=== PATIENT | female | born 1940 | race Caucasian/White ===

== ENCOUNTER 2018-04-10 10:46 | Outpatient (CLI) | payer MEDICARE, BC | END 2018-04-10 10:47 | disposition home or self-care (01) | LOC: BICMAMMO 10:46 | PROVIDERS: ATTEND Specialist | DX: Z08 Encounter for follow-up examination after completed treatment for malignant neoplasm (principal); Z85.3 Personal history of malignant neoplasm of breast; Z80.3 Family history of malignant neoplasm of breast | CPT/HCPCS: 77066; G0279 ==

== ENCOUNTER 2019-04-01 03:12 | Observation (INO) | payer MEDICARE, BC ==
[2019-04-01 04:53] LABS: Hemoglobin 13.2 g/dL (12.0-16.0); Mean Corpuscular HGB CONC 32.9 g/dL (32.0-36.0); Mean Corpuscular Hemoglobin 30.5 pg (27.0-31.0); Mean Corpuscular Volume 92.6 fL (78.0-98.0); Mean Platelet Volume 7.3 fL (7.4-10.4); Platelet Count 386 thou/uL (130-400); RBC Distribution Width 11.6 % (11.5-14.5); Red Blood Cell (RBC) Count 4.32 mill/uL (4.20-5.40); White Blood Cell (WBC) Count 13.1 thou/uL (4.8-10.8)
[2019-04-01 05:10] LABS: ALT (SGPT) 18 U/L (8-55); AST (SGOT) 19 U/L (5-34); Albumin 4.2 g/dL (3.4-4.8); Alkaline Phosphatase 142 U/L (40-110); Anion Gap 16 mmol/L (10-20); BUN (Urea Nitrogen) 31 mg/dL (9.8-20.1); Bilirubin, Total 0.4 mg/dL (0.2-1.2); Calc. Creatinine Clearance 0 mL/min (70-130); Calcium 9.8 mg/dL (7.8-10.44); Carbon Dioxide 21 mmol/L (23-31); Chloride 94 mmol/L (98-107); Estimated GFR-MDRD 26; Globulin 2.9 g/dL (2.4-3.5); Glucose 112 mg/dL (83-110); Protein, Total 7.1 g/dL (6.0-8.3); Sodium 128 mmol/L (136-145)
[2019-04-01 05:14] LABS: Potassium 2.9 mmol/L (3.5-5.1)
[2019-04-01 05:18] LABS: Band 33 % (5-11); Lymphocytes 3 % (21-51); MDiff Complete? YES; Monocytes 1 % (0-10); Neutrophil 63 % (42-75)
[2019-04-01] MEDS ORDERED: Piperacillin/Tazobactam 4.5 GM VIAL ONE (08:06)
--- NOTE | 2019-04-01 08:41 | CT ---
PRELIMINARY REPORT/[facility]/EMERGENCY AFTER HOURS PROCEDURE: PROCEDURE INFORMATION: Exam: CT Abdomen and pelvis without contrast Exam date and time: 04/01/2019 6:26 AM Clinical history: 78 years old, female; Bloating and nausea and vomiting; Patient HX: Patient present s for evaluation of nausea, patient presents for evaluation of vomiting, patient presents for evaluat ion of diarrhea TECHNIQUE: Imaging protocol: Computed tomography of the abdomen and pelvis without contrast. COMPARISON: No relevant prior studies available. FINDINGS: Lungs: Scarring left lung base. Mediastinum: Hiatal hernia. Liver: No liver masses. Gallbladder and bile ducts: Surgical changes of cholecystectomy. No ductal dilation. Pancreas: No pancreatic mass or ductal dilation. Spleen: No splenic masses. Adrenals: No adrenal nodules. Kidneys and ureters: Exophytic cyst superior pole of the right kidney. Punctate cortical versus nonob structing stone in the right kidney. No hydronephrosis. Stomach and bowel: Marked diverticulosis of the sigmoid colon with with wall thickening likely relate d to chronic diverticulitis. Mild distention of the proximal small bowel up to 3 cm and scattered are as of wall thickening. Appendix: The appendix is not visualized, however there are no inflammatory changes in the right lowe r quadrant to suspect appendicitis. Intraperitoneal space: Trace free pelvic fluid. Vasculature: Probable peripherally calcified 1.2 cm distal left renal artery aneurysm. Atherosclerosi s of the aorta without aneurysm. Lymph nodes: No lymphadenopathy. Bladder: The bladder is largely decompressed. Reproductive: Normal appearance of the uterus and adnexa. Bones/joints: Multilevel degenerative changes of the thoracolumbar spine. Mild compression fractures of the superior endplates of L1 and L5. Grade 1 anterolisthesis of L4 with respect to L5. Nonspecific subcentimeter focal sclerosis in the sacrum, likely a bone island. Soft tissues: Fat containing right inguinal hernia. Fat containing umbilical hernia. IMPRESSION: 1. Mild distention of proximal small bowel and a few bowel loops with wall thickening. Predominantly liquid filled colon. Finding most likely represents enteritis, less likely partial small bowel obstru ction without transition identified. 2. Appearance of the sigmoid colon suggest chronic diverticulitis. 3. Hiatal hernia. Thank you for allowing us to participate in the care of your patient. Dictated and Authenticated by: Pearl Ledesma MD 04/01/2019 6:51 AM Central Time ([place] & [place]) FINAL REPORT EMERGENCY AFTER HOURS ABDOMEN AND PELVIC CT SCAN WITHOUT IV CONTRAST: Date: 04/01/19 Time: 0627 hours IMPRESSION: Mild distention and dilatation of small bowel with some mild small bowel wall thickening, as well as essentially fluid-filled colon, nonspecific, possibly enteritis, less likely enterocolitis. Colonic d iverticulosis, particularly in the sigmoid colon, with some fat stranding, having more of a chronic a ppearance, although it would be difficult to totally exclude some minimal acute diverticulitis. Hiata l hernia. Fat-containing umbilical hernia. Densely calcified left renal artery aneurysm, 0.9 cm. Smal l, punctate calcific focus in the right kidney without hydronephrosis. Anterolisthesis of L4 on L5. Report in agreement with preliminary report given on-call by Le. POS: KRISTAN
[2019-04-01] MEDS ORDERED: Acetaminophen 325 MG TAB PO PRN (09:37)
[2019-04-01] MEDS ORDERED: Sodium Chloride 0.9% 1,000 ML IV SCH (09:45)
[2019-04-01 10:10] LABS: #Lymphocytes 0.4 thou/uL (1.20-3.40); #Monocytes 1.7 thou/uL (0.11-0.59); #Neutrophils 16.5 thou/uL (1.40-6.50); %Basophils 0.1 % (0.0-1.0); %Lymphocytes 1.9 % (21.0-51.0); %Monocytes 9.3 % (0.0-10.0); %Neutrophils 88.8 % (42.0-75.0); Hemoglobin 11.5 g/dL (12.0-16.0); Mean Corpuscular HGB CONC 32.8 g/dL (32.0-36.0); Mean Corpuscular Hemoglobin 29.9 pg (27.0-31.0); Mean Platelet Volume 7.2 fL (7.4-10.4); Platelet Count 333 thou/uL (130-400); RBC Distribution Width 11.6 % (11.5-14.5); Red Blood Cell (RBC) Count 3.86 mill/uL (4.20-5.40); White Blood Cell (WBC) Count 18.6 thou/uL (4.8-10.8)
[2019-04-01 10:36] LABS: Anion Gap 15 mmol/L (10-20); Carbon Dioxide 19 mmol/L (23-31); Chloride 98 mmol/L (98-107); Potassium 3.9 mmol/L (3.5-5.1); Sodium 128 mmol/L (136-145)
[2019-04-01 10:39] LABS: ALT (SGPT) 16 U/L (8-55); AST (SGOT) 20 U/L (5-34); Albumin 3.7 g/dL (3.4-4.8); Alkaline Phosphatase 99 U/L (40-110); BUN (Urea Nitrogen) 34 mg/dL (9.8-20.1); Bilirubin, Total 0.5 mg/dL (0.2-1.2); Calc. Creatinine Clearance 0 mL/min (70-130); Calcium 8.9 mg/dL (7.8-10.44); Estimated GFR-MDRD 29; Globulin 2.5 g/dL (2.4-3.5); Glucose 124 mg/dL (83-110); Protein, Total 6.2 g/dL (6.0-8.3)
[2019-04-01] MEDS ORDERED: metroNIDAZOLE 500 MG/100 ML BAG ONE (14:33)
[2019-04-01] MEDS: NS 0.9% w/ 20 MEQ KCL 1,000 ML/1,000 ML BAG IV SCH (15:55)
[2019-04-01] MEDS: metroNIDAZOLE 500 MG in Premix Bag 1 BAG IVPB SCH ×2 (16:05→21:05)
[2019-04-01 20:02] VITALS: BMI 34.0
--- NOTE | 2019-04-01 22:36 | HP ---
CHIEF COMPLAINT: Diarrhea, nausea, and vomiting. HISTORY OF PRESENT ILLNESS: The patient is a very pleasant 78-year-old female with a history of hypercholesterolemia, and anxiety, who presents to the hospital with complaints of nausea, vomiting, and diarrhea x1 day. The patient stated that last night she ate chicken fried steak from [employer]) and had a chocolate blizzard and right before she was going to bed, she felt lightheaded, felt very nauseous, started having significant amount of nausea, vomiting, followed by significant amount of diarrhea. The patient is wheelchair bound. She states she could not even keep anything down. The patient states that sometimes when she eats greasy foods, she does have these symptoms. The patient does not have a gallbladder. The patient stated that she felt so weak, so she came into the ER for further evaluation. PAST MEDICAL HISTORY: She has a past medical history of; 1. Hypercholesterolemia. 2. Hypertension. 3. Anxiety. 4. She has had a pontine stroke causing hemiplegia. PAST SURGICAL HISTORY: She has had a cholecystectomy. She has had a partial right knee repair. She has also had a right internal carotid artery endarterectomy. ALLERGIES: SHE IS ALLERGIC TO NO DRUGS. MEDICATIONS: As of the following; 1. Aspirin 325 mg one p.o. daily. 2. Wellbutrin 150 mg daily. 3. Simvastatin 40 mg at bedtime. 4. Travoprost one drop in each eye at night. 5. Verapamil 120 mg in the morning and 240 mg at night. REVIEW OF SYSTEMS: All negative except for the ones mentioned above in the HPI. SOCIAL HISTORY: She is . She does not drink. She does not smoke. No recreational drug use. She is a full code. FAMILY HISTORY: No history of heart disease or stroke. PHYSICAL EXAMINATION: VITAL SIGNS: Temperature of 98.8, pulse 86, blood pressure 122/68, 98% on room air. GENERAL: She is awake, alert, and oriented x3. Does not appear in any distress. HEENT: Normocephalic and atraumatic. No lymphadenopathy noted. Pupils are equal and reactive to light. CV: S1 and S2 present. No murmurs, rubs, or gallops. LUNGS: Clear to auscultation. No rhonchi or wheezes noted. ABDOMEN: Soft and nontender. Bowel sounds present x2. EXTREMITIES: Mild 1+ edema. Pedal pulses are present x2. NEUROLOGIC: Neurovascular sotomayor, no focal deficits noted. SKIN: No cuts, lesions, or bruises noted. LABORATORY RESULTS: As of the following. Her WBC is 13.1 with bands of 33, hemoglobin of 13.2, hematocrit of 40.1. Her platelets are 386. Chemistry; sodium of 128, potassium of 2.9, BUN of 31, creatinine of 1.87, her baseline is 0.8. Alkaline phosphatase of 142, which went down to 99. She did have a CT of abdomen and pelvis, which indicated mild distention of proximal small bowel and few bowel loops with wall thickening predominantly liquid filled: Most likely enteritis, less likely to be partial small bowel obstruction and appearance of sigmoid colon suggesting of chronic diverticulitis and hiatal hernia. ASSESSMENT AND PLAN: The patient is a very pleasant 78-year-old female, who presents to the hospital with complaints of nausea, vomiting, and diarrhea. 1. Nausea, vomiting, diarrhea, most likely secondary to gastroenteritis, not sure if this is due to her toxin versus a viral. We will start the patient on some IV hydration. I will also put on prophylactic antibiotics with Cipro and Flagyl and also put on some Florastor. We will check a stool for C diff and stool for WBCs. 2. Hypokalemia. We will replace her potassium and add some potassium in her IV. 3. Hyponatremia. We will check a serum osmolality. We will also check a TSH and a cortisol level. This could be secondary to dehydration versus syndrome of inappropriate antidiuretic hormone secretion. 4. Acute kidney injury as most likely secondary to severe nausea, vomiting, and diarrhea. Her creatinine has improved on her 2nd repeat blood work, however, I will continue the IV hydration and monitor. 5. Deep venous thrombosis prophylaxis. We will put the patient on some subcu heparin. Job ID: [id number]
[2019-04-02] MEDS: metroNIDAZOLE 500 MG in Premix Bag 1 BAG IVPB SCH (05:39)
[2019-04-02] MEDS: NS 0.9% w/ 20 MEQ KCL 1,000 ML/1,000 ML BAG IV SCH ×2 (05:40→18:31)
[2019-04-02 06:42] LABS: #Eosinphils 0.2 thou/uL (0.0-0.7); #Lymphocytes 1.2 thou/uL (1.20-3.40); #Monocytes 1.4 thou/uL (0.11-0.59); #Neutrophils 14.7 thou/uL (1.40-6.50); %Basophils 0.1 % (0.0-1.0); %Eosinophils 0.9 % (0.0-10.0); %Lymphocytes 6.9 % (21.0-51.0); %Monocytes 8.1 % (0.0-10.0); %Neutrophils 84.1 % (42.0-75.0); Hemoglobin 8.7 g/dL (12.0-16.0); Mean Corpuscular HGB CONC 33.1 g/dL (32.0-36.0); Mean Corpuscular Hemoglobin 30.8 pg (27.0-31.0); Mean Corpuscular Volume 92.8 fL (78.0-98.0); Mean Platelet Volume 7.4 fL (7.4-10.4); Platelet Count 274 thou/uL (130-400); RBC Distribution Width 11.6 % (11.5-14.5); Red Blood Cell (RBC) Count 2.82 mill/uL (4.20-5.40); White Blood Cell (WBC) Count 17.5 thou/uL (4.8-10.8)
[2019-04-02 07:03] LABS: ALT (SGPT) 13 U/L (8-55); AST (SGOT) 19 U/L (5-34); Albumin 3.2 g/dL (3.4-4.8); Alkaline Phosphatase 70 U/L (40-110); Anion Gap 11 mmol/L (10-20); BUN (Urea Nitrogen) 28 mg/dL (9.8-20.1); Bilirubin, Total 0.4 mg/dL (0.2-1.2); Calc. Creatinine Clearance 45 mL/min (70-130); Calcium 8.2 mg/dL (7.8-10.44); Carbon Dioxide 21 mmol/L (23-31); Chloride 102 mmol/L (98-107); Estimated GFR-MDRD 38; Globulin 2.1 g/dL (2.4-3.5); Glucose 84 mg/dL (83-110); Potassium 3.6 mmol/L (3.5-5.1); Protein, Total 5.3 g/dL (6.0-8.3); Sodium 130 mmol/L (136-145)
[2019-04-02] MEDS: Saccharomyces boulardii 250 MG CAP PO SCH (08:28)
[2019-04-02] MEDS: Enoxaparin Sodium 40 MG/0.4 ML SYRINGE SC SCH (08:29)
[2019-04-02] MEDS ORDERED: FLU VACC TS2019-20(65YR UP)/PF 180 MCG/0.5 ML SYRINGE IM ONE (09:00)
[2019-04-02] MEDS: Famotidine 20 MG TAB PO SCH ×2 (10:36→20:23)
[2019-04-02] MEDS: Vancomycin HCl 25 MG/ML Oral PO SCH ×3 (10:49→20:23)
[2019-04-02] MEDS ORDERED: Atorvastatin Calcium 20 MG TAB PO SCH (21:00)
[2019-04-02] MEDS ORDERED: Latanoprost 0.005% Ophth Soln 2.5 ml Bottle EA EYE SCH (21:00)
[2019-04-03] MEDS: Vancomycin HCl 25 MG/ML Oral PO SCH ×3 (02:34→15:11)
--- NOTE | 2019-04-03 07:32 | PDOC.HOSPP ---
- Subjective Encounter Date: 04/02/19 Encounter Time: 10:30 Subjective: pt up in bed feels well. - Objective Vital Signs & Weight: Vital Signs (12 hours) Temp Pulse Resp BP BP Pulse Ox 04/03/19 06:02 168/80 H 04/03/19 04:00 97.9 F 71 20 197/93 H 95 04/02/19 23:41 98.0 F 89 20 158/66 H 96 04/02/19 19:47 98.1 F 87 20 184/91 H 97 Weight Weight 180 lb I&O: 04/02/19 04/03/19 04/04/19 06:59 06:59 06:59 Intake Total 3100 600 Output Total 300 Balance 2800 600 Result Diagrams: 04/02/19 06:05 04/02/19 06:05 Hospitalist ROS - Review of Systems Respiratory: denies: cough, dry, shortness of breath, hemoptysis, SOB with excertion, pleuritic pain, sputum, wheezing, other Cardiovascular: denies: chest pain, palpitations, orthopnea, paroxysmal noc. dyspnea, edema, light headedness, other Gastrointestinal: denies: nausea, vomiting, abdominal pain, diarrhea, constipation, melena, hematochezia, other - Medication Medications: Active Medications Generic Name Dose Route Start Last Admin Trade Name Damian PRN Reason Stop Dose Admin Atorvastatin Calcium 20 mg 04/02/19 21:00 04/02/19 20:23 Lipitor PO 20 mg HS JACKSON Administration Enoxaparin Sodium 40 mg 04/02/19 09:00 04/02/19 08:29 Lovenox SC 40 mg 0900 JACKSON Administration Latanoprost 1 drop 04/02/19 21:00 04/02/19 20:23 Xalatan 0.005% Ophth Soln EA EYE 1 drop HS JACKSON Administration Saccharomyces Boulardii 250 mg 04/02/19 09:00 04/02/19 08:28 Florastor PO 250 mg DAILY JACKSON Administration Vancomycin HCl 125 mg 04/02/19 09:00 04/03/19 02:34 First Vancomycin PO 125 mg Q6H JACKSON Administration Verapamil HCl 240 mg 04/02/19 21:00 04/02/19 20:23 Calan Sr PO 240 mg HS JACKSON Administration - Exam Neck: negative: supple, symmetric, no JVD, no thyromegaly, no lymphadenopathy, no carotid bruit, JVD Heart: negative: RRR, no murmur, no gallops, no rubs, normal peripheral pulses, irregular, diminshed peripheral pulses, murmur present, II/IV, III/IV Respiratory: wheezes Hosp A/P (1) C. difficile diarrhea Code(s): A04.72 - ENTEROCOLITIS D/T CLOSTRIDIUM DIFFICILE, NOT SPCF RECUR Status: Acute (2) Morbid obesity Code(s): E66.01 - MORBID (SEVERE) OBESITY DUE TO EXCESS CALORIES Status: Acute (3) [place] (acute kidney injury) Code(s): N17.9 - ACUTE KIDNEY FAILURE, UNSPECIFIED Status: Acute (4) Leukocytosis Code(s): D72.829 - ELEVATED WHITE BLOOD CELL COUNT, UNSPECIFIED Status: Acute (5) Anemia Code(s): D64.9 - ANEMIA, UNSPECIFIED Status: Acute - Plan will start pt on vanco and stop abx. will check hh in am discontinue iv fluids and give a neb tx. she has some mild wheezing.
[2019-04-03 07:59] VITALS: BP 175/77; TEMP 97.7
[2019-04-03] MEDS: Saccharomyces boulardii 250 MG CAP PO SCH (08:18)
[2019-04-03] MEDS: Enoxaparin Sodium 40 MG/0.4 ML SYRINGE SC SCH (08:19)
[2019-04-03 08:24] LABS: #Basophils 0.1 thou/uL (0.0-0.2); #Eosinphils 0.5 thou/uL (0.0-0.7); #Lymphocytes 1.3 thou/uL (1.20-3.40); #Monocytes 1.1 thou/uL (0.11-0.59); #Neutrophils 9.2 thou/uL (1.40-6.50); %Basophils 0.4 % (0.0-1.0); %Lymphocytes 10.7 % (21.0-51.0); Hemoglobin 9.9 g/dL (12.0-16.0); Mean Corpuscular HGB CONC 32.3 g/dL (32.0-36.0); Mean Corpuscular Hemoglobin 29.4 pg (27.0-31.0); Mean Corpuscular Volume 91.3 fL (78.0-98.0); Mean Platelet Volume 7.5 fL (7.4-10.4); Platelet Count 301 thou/uL (130-400); RBC Distribution Width 11.6 % (11.5-14.5); Red Blood Cell (RBC) Count 3.36 mill/uL (4.20-5.40); White Blood Cell (WBC) Count 12.1 thou/uL (4.8-10.8)
[2019-04-03 08:48] LABS: Anion Gap 13 mmol/L (10-20); BUN (Urea Nitrogen) 12 mg/dL (9.8-20.1); Calc. Creatinine Clearance 64 mL/min (70-130); Calcium 9.2 mg/dL (7.8-10.44); Carbon Dioxide 23 mmol/L (23-31); Chloride 104 mmol/L (98-107); Estimated GFR-MDRD 58; Glucose 86 mg/dL (83-110); Potassium 3.7 mmol/L (3.5-5.1); Sodium 136 mmol/L (136-145)
[2019-04-03] MEDS ORDERED: Aspirin 325 MG TAB PO SCH ×2 (09:00)
[2019-04-03] MEDS ORDERED: Anastrozole 1 MG TAB PO SCH (09:00)
[2019-04-03] MEDS ORDERED: Famotidine 20 MG TAB PO SCH (21:00)
--- NOTE | 2019-04-03 23:19 | DIS ---
DATE OF ADMISSION: 04/01/2019 DATE OF DISCHARGE: 04/03/2019 DISCHARGE DIAGNOSES: 1. Clostridium difficile. 2. Diarrhea. 3. Hypertension. HOSPITAL COURSE: The patient is a 78-year-old female who came to the hospital with no abdominal pain, but just diarrhea. She did undergo stool studies, the patient's C diff was positive and also toxin was positive. The patient was put on oral vancomycin, she tolerated it well. Her diarrhea has improved. Her leukocytosis has improved. The patient has been tolerating her diet and she wants to go home. The patient will follow up with her primary care. MEDICATIONS: She is going to be on: 1. Pepcid 20 mg b.i.d. 2. Her Protonix has been discontinued. 3. Vancomycin oral 250 mg q.i.d. 4. Simvastatin 40 mg daily. 5. Aspirin 81 mg daily. 6. Anastrozole one p.o. daily. 7. Verapamil 240 mg p.o. b.i.d. PHYSICAL EXAMINATION: VITAL SIGNS: Temperature 97.7, pulse 74, respirations 18, 98% on room air, blood pressure 160/80. GENERAL: She is awake, alert, and oriented x3. Does not appear in any distress. CV: S1 and S2 present. No murmurs, rubs, gallops. ABDOMEN: Soft and nontender. Bowel sounds present x2. Job ID: [id number]
== END 2019-04-03 18:14 | disposition home or self-care (01) ==
LOC: ERS 03:12 → ERHOLD 06:15 → T4-A 17:50
PROVIDERS: ADMIT Internal Medicine; ATTEND Internal Medicine
DX: A04.72 Enterocolitis due to Clostridium difficile, not specified as recurrent (principal); K44.9 Diaphragmatic hernia without obstruction or gangrene; I10 Essential (primary) hypertension; N17.9 Acute kidney failure, unspecified; D72.829 Elevated white blood cell count, unspecified; E87.6 Hypokalemia; E87.1 Hypo-osmolality and hyponatremia; E66.01 Morbid (severe) obesity due to excess calories; D64.9 Anemia, unspecified; E78.00 Pure hypercholesterolemia, unspecified; F41.9 Anxiety disorder, unspecified; I63.89 Other cerebral infarction; G81.90 Hemiplegia, unspecified affecting unspecified side; Z68.34 Body mass index [BMI] 34.0-34.9, adult; Z79.82 Long term (current) use of aspirin; Z79.899 Other long term (current) drug therapy; Z91.048 Other nonmedicinal substance allergy status
CPT/HCPCS: 74176; 80048; 80053 ×3; 83630; 83735; 83930; 83935; 84300; 85025 ×4; 87324; 87449; 87493; 90662; 94640; 96360; 96361; 96365; 96366; 96367 ×2; 96372 ×2; 99285; G0008; G0378 ×4; 36415; 51798; 90471; J0744; J1650; J2543; J3480; J7620

== ENCOUNTER 2019-04-14 13:55 | Outpatient (CLI) | payer MEDICARE, BC ==
--- NOTE | 2019-04-14 14:42 | MMO ---
Bilateral MAMMO Bilat Diag [facility]DI+RADHA. CLINICAL HISTORY: Patient is 78 years old and is seen for diagnostic exam. The patient has the following family history of breast cancer: niece, at age 47, malignant (generic). 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 in the left breast in May, and Stereotactic core biopsy procedure revealed invasive ductal left breast carcinoma in May,. The patient has a history of left Lumpectomy in May, - invasive ductal carcinoma, left Stereotatic Biopsy in May, - invasive ductal carcinoma, bilateral Cyst Aspiration in 2001 - many aspirations in the past- bilateral and right Excisional Biopsy in 05/2001 - benign. VIEWS: The views performed were: bilateral craniocaudal with tomosynthesis; bilateral mediolateral oblique with tomosynthesis; and bilateral mediolateral with tomosynthesis. FILMS COMPARED: The present examination has been compared to prior imaging studies performed at [facility] on 05/31/2015, 06/05/2016, 04/09/2017 and 04/10/2018. This study has been interpreted with the assistance of computer-aided detection. MAMMOGRAM FINDINGS: There are scattered fibroglandular densities. Finding 1: There is an area of architectural distortion with associated post-surgical scar seen in the left breast. Finding 2: There are stable benign appearing calcifications seen in both breasts. There are no suspicious masses, suspicious calcifications, or new areas of architectural distortion. IMPRESSION: THERE IS NO MAMMOGRAPHIC EVIDENCE OF MALIGNANCY. A ROUTINE FOLLOW-UP MAMMOGRAM IN 1 YEAR IS RECOMMENDED. THE RESULTS OF THIS EXAM WERE SENT TO THE PATIENT. ACR BI-RADS Category 2 - Benign finding MAMMOGRAPHY NOTE: 1. A negative mammogram report should not delay a biopsy if a dominant of clinically suspicious mass is present. 2. Approximately 10% to 15% of breast cancers are not detected by mammography. 3. Adenosis and dense breasts may obscure an underlying neoplasm. Reported by: MONICA MART MD Electonically Signed: [id number]
--- NOTE | 2019-04-14 15:22 | BD ---
DEXA BONE DENSITOMETRY: (Dual energy x-ray absorptiometry) DATE: 04/14/2019 HISTORY: 78-year old white female for age-related, post-menopausal, osteoporosis screening. weight: 177 lbs height: 61 in. Age of menopause: 50 COMPARISON: None available. FINDINGS: The bone mineral density (BMD) is given in grams per square centimeter (g/cm2): LUMBAR SPINE: BMD (g/cm^2) T score Z score L1: 1.177 1.7 4.0 L2: 1.163 1.2 3.8 L3: 1.109 0.2 2.9 L4: 1.086 0.2 3.0 Total: 1.130 0.8 3.4 HIP: BMD (g/cm^2) T score Z score Femoral neck: 0.771 -0.7 1.5 Total: 0.928 -0.1 1.9 IMPRESSION: 1.) The mean bone mineral density of the lumbar spine is normal. Fracture risk is not increased. 2) The bone mineral density of the femoral neck is normal. Fracture risk is not increased.
== END 2019-04-14 13:56 | disposition home or self-care (01) ==
LOC: BICMAMMO 13:55
PROVIDERS: ATTEND Internal Medicine Hematology & Oncology
DX: Z13.820 Encounter for screening for osteoporosis (principal); C50.912 Malignant neoplasm of unspecified site of left female breast; Z78.0 Asymptomatic menopausal state; T38.6X5A Adverse effect of antigonadotrophins, antiestrogens, antiandrogens, not elsewhere classified, initial encounter
CPT/HCPCS: 77066; 77080; G0279

== ENCOUNTER 2020-04-13 10:26 | Outpatient (CLI) | payer MEDICARE, BC ==
--- NOTE | 2020-04-13 11:13 | MMO ---
Bilateral MAMMO Bilat Diag DDI+RADHA. CLINICAL HISTORY: Patient is 79 years old and is seen for diagnostic exam. The patient has the following family history of breast cancer: niece, at age 47, malignant (generic). 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 in the left breast in May, and Stereotactic core biopsy procedure revealed invasive ductal left breast carcinoma in May,. The patient has a history of left Lumpectomy in May, - invasive ductal carcinoma, left Stereotatic Biopsy in May, - invasive ductal carcinoma, bilateral Cyst Aspiration in 2001 - many aspirations in the past- bilateral and right Excisional Biopsy in 05/2001 - benign. VIEWS: The views performed were: . FILMS COMPARED: The present examination has been compared to prior imaging studies performed at [facility] on 06/05/2016, 04/09/2017, 04/10/2018 and 04/14/2019. This study has been interpreted with the assistance of computer-aided detection. MAMMOGRAM FINDINGS: There are scattered fibroglandular densities. Finding 1: There are stable areas of architectural distortion seen in both breasts. Finding 2: There are stable benign appearing calcifications seen in both breasts. There are no suspicious masses, suspicious calcifications, or new areas of architectural distortion. IMPRESSION: THERE IS NO MAMMOGRAPHIC EVIDENCE OF MALIGNANCY. A ROUTINE FOLLOW-UP MAMMOGRAM IN 1 YEAR IS RECOMMENDED. THE RESULTS OF THIS EXAM WERE SENT TO THE PATIENT. ACR BI-RADS Category 2 - Benign finding MAMMOGRAPHY NOTE: 1. A negative mammogram report should not delay a biopsy if a dominant of clinically suspicious mass is present. 2. Approximately 10% to 15% of breast cancers are not detected by mammography. 3. Adenosis and dense breasts may obscure an underlying neoplasm. Reported by: HIGINIO ROSA MD Electonically Signed: [id number]
== END 2020-04-13 10:27 | disposition home or self-care (01) ==
LOC: BICMAMMO 10:26
PROVIDERS: ATTEND Internal Medicine Hematology & Oncology
DX: C50.112 Malignant neoplasm of central portion of left female breast (principal)
CPT/HCPCS: 77066; G0279

== ENCOUNTER 2021-04-17 13:52 | Outpatient (CLI) | payer MEDICARE, BC | END 2021-04-17 13:53 | disposition home or self-care (01) | LOC: BICMAMMO 13:52 | PROVIDERS: ATTEND Internal Medicine Hematology & Oncology | DX: Z13.820 Encounter for screening for osteoporosis (principal); Z78.0 Asymptomatic menopausal state; Z85.3 Personal history of malignant neoplasm of breast | CPT/HCPCS: 77066; 77080; G0279 ==

== ENCOUNTER 2021-12-20 20:49 | Inpatient (IN) | payer MEDICARE, BC ==
[2021-12-20] MEDS ORDERED: Atropine Sulfate 1 mg/10 ml Syringe ONE ×2 (21:22→23:00)
[2021-12-20 21:37] LABS: #Eosinphils 0.1 thou/uL (0.0-0.7); #Lymphocytes 0.6 thou/uL (1.20-3.40); #Monocytes 0.8 thou/uL (0.11-0.59); #Neutrophils 7.3 thou/uL (1.40-6.50); %Basophils 0.5 % (0.0-1.0); %Eosinophils 1.6 % (0.0-10.0); %Lymphocytes 6.8 % (21.0-51.0); %Monocytes 9.2 % (0.0-10.0); %Neutrophils 81.9 % (42.0-75.0); Hemoglobin 10.6 g/dL (12.0-16.0); Mean Corpuscular HGB CONC 32.5 g/dL (32.0-36.0); Mean Corpuscular Hemoglobin 33.2 pg (27.0-31.0); Mean Platelet Volume 7.6 fL (7.4-10.4); Platelet Count 311 thou/uL (130-400); RBC Distribution Width 12.5 % (11.5-14.5); Red Blood Cell (RBC) Count 3.19 mill/uL (4.20-5.40); White Blood Cell (WBC) Count 8.9 thou/uL (4.8-10.8)
[2021-12-20 22:02] LABS: ALT (SGPT) 12 U/L (8-55); AST (SGOT) 9 U/L (5-34); Acetaminophen Less than 10.0 mcg/mL (10.0-30.0); Albumin 3.4 g/dL (3.4-4.8); Alcohol Less than 10 mg/dL (Less than 10); Alkaline Phosphatase 79 U/L (40-110); Anion Gap 19 mmol/L (10-20); BUN (Urea Nitrogen) 63 mg/dL (9.8-20.1); Bilirubin, Total 0.3 mg/dL (0.2-1.2); Calc. Creatinine Clearance 0 mL/min (70-130); Calcium 8.1 mg/dL (7.8-10.44); Carbon Dioxide 17 mmol/L (23-31); Chloride 93 mmol/L (98-107); Globulin 2.4 g/dL (2.4-3.5); Glucose 103 mg/dL (83-110); Magnesium 2.2 mg/dL (1.6-2.6); Potassium 3.5 mmol/L (3.5-5.1); Protein, Total 5.8 g/dL (5.8-8.1); Salicylate Less than 8.0 mg/dL (15.0-30.0); Sodium 125 mmol/L (136-145)
[2021-12-20] MEDS ORDERED: Acetaminophen 650 MG Suppository PR PRN (23:36)
[2021-12-20] MEDS ORDERED: Ondansetron ODT 4 MG TAB PO PRN (23:36)
[2021-12-20] MEDS ORDERED: Ondansetron PF 4 MG/2 ML Vial IVP PRN (23:36)
[2021-12-21 00:45] VITALS: BMI 39.8
[2021-12-21 01:16] LABS: Troponin I Less than 0.010 ng/mL (< 0.028)
[2021-12-21 01:37] LABS: SARS-CoV-2 NAA Rapid Test Not Detected (NotDetected)
[2021-12-21 03:57] LABS: #Eosinphils 0.1 thou/uL (0.0-0.7); #Lymphocytes 0.8 thou/uL (1.20-3.40); #Monocytes 0.8 thou/uL (0.11-0.59); %Basophils 0.5 % (0.0-1.0); %Eosinophils 1.2 % (0.0-10.0); %Lymphocytes 8.9 % (21.0-51.0); %Monocytes 9.1 % (0.0-10.0); %Neutrophils 80.2 % (42.0-75.0); Hemoglobin 9.7 g/dL (12.0-16.0); Mean Corpuscular HGB CONC 32.9 g/dL (32.0-36.0); Mean Corpuscular Hemoglobin 33.4 pg (27.0-31.0); Mean Platelet Volume 7.8 fL (7.4-10.4); Platelet Count 273 thou/uL (130-400); RBC Distribution Width 12.5 % (11.5-14.5); Red Blood Cell (RBC) Count 2.88 mill/uL (4.20-5.40); White Blood Cell (WBC) Count 8.7 thou/uL (4.8-10.8)
[2021-12-21 04:21] LABS: Troponin I Less than 0.010 ng/mL (< 0.028)
[2021-12-21] MEDS ORDERED: Sodium Chloride 0.9% 1,000 ML IV SCH (05:15)
[2021-12-21] MEDS: Sodium Chloride 0.9% 1,000 ML IV SCH ×2 (05:31→12:47)
[2021-12-21 07:25] LABS: Anion Gap 19 mmol/L (10-20); BUN (Urea Nitrogen) 62 mg/dL (9.8-20.1); Calc. Creatinine Clearance 21 mL/min (70-130); Calcium 8.1 mg/dL (7.8-10.44); Carbon Dioxide 16 mmol/L (23-31); Chloride 95 mmol/L (98-107); Glucose 77 mg/dL (83-110); Potassium 3.5 mmol/L (3.5-5.1); Sodium 126 mmol/L (136-145)
[2021-12-21] MEDS ORDERED: Sodium Bicarbonate Tab 325 MG TAB PO SCH (11:30)
[2021-12-21 12:31] LABS: Anion Gap 18 mmol/L (10-20); BUN (Urea Nitrogen) 57 mg/dL (9.8-20.1); Calc. Creatinine Clearance 24 mL/min (70-130); Calcium 8.8 mg/dL (7.8-10.44); Carbon Dioxide 15 mmol/L (23-31); Chloride 97 mmol/L (98-107); Glucose 90 mg/dL (83-110); Potassium 3.4 mmol/L (3.5-5.1); Sodium 127 mmol/L (136-145)
[2021-12-21 13:07] LABS: Bilirubin Negative (Negative); Blood, Urine Negative (Negative); Clarity Turbid (Clear); Glucose, Urine (Dipstick) Normal (Negative); Ketone, Urine Negative (Negative); Leukocyte 500 Leu/uL (Negative); Nitrite Negative (Negative); Protein, Urine (Dipstick) Negative (Neg-Trace); RBC/HPF 0-3 HPF (0-3); Squamous Epithelial None Seen HPF (0-3); Urobilinogen Normal mg/dL (Less than 2); WBC/HPF Greater than 50 HPF (0-3)
[2021-12-21 13:08] LABS: Bacteria/HPF 1+ HPF (None Seen)
[2021-12-21 13:40] LABS: Creatinine, Urine 34.04 mg/dL (47-110)
[2021-12-21] MEDS: Sodium Bicarbonate Tab 325 MG TAB PO SCH (20:16)
[2021-12-22] MEDS: Sodium Chloride 0.9% 1,000 ML IV SCH ×3 (01:14→13:13)
[2021-12-22 05:07] LABS: #Eosinphils 0.1 thou/uL (0.0-0.7); #Lymphocytes 0.5 thou/uL (1.20-3.40); #Monocytes 0.7 thou/uL (0.11-0.59); #Neutrophils 5.7 thou/uL (1.40-6.50); %Basophils 0.4 % (0.0-1.0); %Eosinophils 1.6 % (0.0-10.0); %Monocytes 10.4 % (0.0-10.0); %Neutrophils 80.6 % (42.0-75.0); Hemoglobin 9.9 g/dL (12.0-16.0); Mean Corpuscular HGB CONC 32.6 g/dL (32.0-36.0); Mean Corpuscular Hemoglobin 33.4 pg (27.0-31.0); Mean Platelet Volume 7.6 fL (7.4-10.4); Platelet Count 325 thou/uL (130-400); RBC Distribution Width 13.1 % (11.5-14.5); Red Blood Cell (RBC) Count 2.95 mill/uL (4.20-5.40); White Blood Cell (WBC) Count 7.1 thou/uL (4.8-10.8)
[2021-12-22 05:24] LABS: Anion Gap 12 mmol/L (10-20); BUN (Urea Nitrogen) 43 mg/dL (9.8-20.1); Calc. Creatinine Clearance 41 mL/min (70-130); Calcium 8.2 mg/dL (7.8-10.44); Carbon Dioxide 20 mmol/L (23-31); Chloride 103 mmol/L (98-107); Glucose 88 mg/dL (83-110); Potassium 3.2 mmol/L (3.5-5.1); Sodium 132 mmol/L (136-145)
[2021-12-22] MEDS: Sodium Bicarbonate Tab 325 MG TAB PO SCH (09:29)
[2021-12-22] MEDS ORDERED: Potassium Chloride 20 MEQ TAB PO SCH (10:30)
[2021-12-22] MEDS ORDERED: cefTRIAXone\\ROCEPHIN 1 GM in Sodium Chloride 0.9% 100 ML IVPB SCH (14:00)
[2021-12-23] MEDS: Acetaminophen 325 MG TAB PO PRN ×2 (08:45→18:39)
[2021-12-23] MEDS: Sodium Chloride 0.9% 1,000 ML IV SCH (08:57)
[2021-12-23 11:30] LABS: Anion Gap 15 mmol/L (10-20); BUN (Urea Nitrogen) 21 mg/dL (9.8-20.1); Calc. Creatinine Clearance 77 mL/min (70-130); Calcium 9.2 mg/dL (7.8-10.44); Carbon Dioxide 22 mmol/L (23-31); Chloride 104 mmol/L (98-107); Glucose 102 mg/dL (83-110); Sodium 137 mmol/L (136-145)
[2021-12-23] MEDS ORDERED: Amlodipine 5 MG TAB PO SCH (11:45)
[2021-12-23] MEDS ORDERED: Cefdinir 300 MG CAP PO SCH (11:45)
[2021-12-24] MEDS: Acetaminophen 325 MG TAB PO PRN ×2 (01:55→16:39)
[2021-12-24 06:32] LABS: Anion Gap 13 mmol/L (10-20); BUN (Urea Nitrogen) 12 mg/dL (9.8-20.1); Calc. Creatinine Clearance 95 mL/min (70-130); Carbon Dioxide 23 mmol/L (23-31); Chloride 104 mmol/L (98-107); Glucose 89 mg/dL (83-110); Potassium 3.9 mmol/L (3.5-5.1); Sodium 136 mmol/L (136-145)
[2021-12-24] MEDS: Amlodipine 5 MG TAB PO SCH (08:48)
[2021-12-24] MEDS: Nitrofurantoin Monohyd/M-Cryst 100 MG CAP PO SCH ×2 (08:56→19:36)
[2021-12-25 06:54] LABS: Anion Gap 14 mmol/L (10-20); BUN (Urea Nitrogen) 10 mg/dL (9.8-20.1); Calc. Creatinine Clearance 99 mL/min (70-130); Calcium 9.6 mg/dL (7.8-10.44); Carbon Dioxide 25 mmol/L (23-31); Chloride 102 mmol/L (98-107); Glucose 91 mg/dL (83-110); Potassium 3.6 mmol/L (3.5-5.1); Sodium 137 mmol/L (136-145)
[2021-12-25] MEDS: Furosemide 20 MG TAB PO SCH (08:56)
[2021-12-25] MEDS: Amlodipine 5 MG TAB PO SCH (08:56)
[2021-12-25] MEDS: Nitrofurantoin Monohyd/M-Cryst 100 MG CAP PO SCH ×2 (08:56→21:42)
[2021-12-25] MEDS: Aspirin 81 mg Enteric Coated Tablet PO SCH (08:59)
[2021-12-25] MEDS: DorzolamidE/Timolol 2%/0.5% Ophth Soln 10 ml Bottle EA EYE SCH ×2 (09:06→21:42)
[2021-12-25] MEDS ORDERED: Latanoprost 0.005% Ophth Soln 2.5 ml Bottle EA EYE SCH (21:00)
[2021-12-26 06:41] LABS: Anion Gap 13 mmol/L (10-20); BUN (Urea Nitrogen) 11 mg/dL (9.8-20.1); Calc. Creatinine Clearance 89 mL/min (70-130); Calcium 9.5 mg/dL (7.8-10.44); Carbon Dioxide 25 mmol/L (23-31); Chloride 98 mmol/L (98-107); Glucose 93 mg/dL (83-110); Potassium 3.4 mmol/L (3.5-5.1); Sodium 133 mmol/L (136-145)
[2021-12-26] MEDS: Aspirin 81 mg Enteric Coated Tablet PO SCH (08:23)
[2021-12-26] MEDS: Furosemide 20 MG TAB PO SCH (08:23)
[2021-12-26] MEDS: Nitrofurantoin Monohyd/M-Cryst 100 MG CAP PO SCH (08:23)
[2021-12-26] MEDS: Amlodipine 5 MG TAB PO SCH (08:23)
[2021-12-26] MEDS: DorzolamidE/Timolol 2%/0.5% Ophth Soln 10 ml Bottle EA EYE SCH (08:24)
[2021-12-26 08:32] VITALS: BP 164/96; TEMP 97.5
== END 2021-12-26 13:00 | DRG 918 ==
LOC: ERS 20:49 → CCU 22:50 → IMCU/EMU 12-21 12:36 → 2NO 12-21 21:17 → T4-A 12-22 17:53
PROVIDERS: ADMIT Internal Medicine; ATTEND Internal Medicine
DX: T46.1X1A Poisoning by calcium-channel blockers, accidental (unintentional), initial encounter (principal); I69.954 Hemiplegia and hemiparesis following unspecified cerebrovascular disease affecting left non-dominant side; N17.9 Acute kidney failure, unspecified; E87.1 Hypo-osmolality and hyponatremia; E87.2 Acidosis; Z66 Do not resuscitate; Z20.822 Contact with and (suspected) exposure to COVID-19; K21.9 Gastro-esophageal reflux disease without esophagitis; H40.9 Unspecified glaucoma; E78.5 Hyperlipidemia, unspecified; E78.00 Pure hypercholesterolemia, unspecified; R00.1 Bradycardia, unspecified; I12.9 Hypertensive chronic kidney disease with stage 1 through stage 4 chronic kidney disease, or unspecified chronic kidney disease; E11.22 Type 2 diabetes mellitus with diabetic chronic kidney disease; N18.30 Chronic kidney disease, stage 3 unspecified; Z96.652 Presence of left artificial knee joint; E66.9 Obesity, unspecified; E87.6 Hypokalemia; Z90.49 Acquired absence of other specified parts of digestive tract; Z79.82 Long term (current) use of aspirin; Z79.899 Other long term (current) drug therapy; Z68.39 Body mass index [BMI] 39.0-39.9, adult
CPT/HCPCS: 36415; 36416; 76770; 80048; 80053; 80307; 81001; 82570; 82607; 82746; 83735; 83930; 83935; 84156; 84300; 84484; 85025; 87077; 87086; 87186; 93005; 93306; 96361; 96374; 96376; J0461; J0696; J3490; J7050; U0002

== ENCOUNTER 2022-04-18 10:38 | Outpatient (CLI) | payer MEDICARE, BC | END 2022-04-18 10:39 | disposition home or self-care (01) | LOC: BICMAMMO 10:38 | PROVIDERS: ATTEND Internal Medicine Hematology & Oncology | DX: Z08 Encounter for follow-up examination after completed treatment for malignant neoplasm (principal); M81.0 Age-related osteoporosis without current pathological fracture; Z85.3 Personal history of malignant neoplasm of breast | CPT/HCPCS: 77066; 77080; G0279 ==

== ENCOUNTER 2022-12-15 16:00 | Emergency (ER) | payer MEDICARE, BC ==
[~2022-12-15 16:00] MED LIST: Iopamidol-370 76% 500 ML MDV (1 ML CHARGE) ONE
[2022-12-15 16:54] LABS: #Monocytes 0.5 thou/uL (0.11-0.59); #Neutrophils 5.6 thou/uL (1.40-6.50); %Basophils 0.4 % (0.0-1.0); %Eosinophils 0.4 % (0.0-10.0); %Lymphocytes 11.4 % (21.0-51.0); %Monocytes 6.8 % (0.0-10.0); %Neutrophils 80.7 % (42.0-75.0); Hemoglobin 12.9 g/dL (12.0-16.0); Mean Corpuscular HGB CONC 32.6 g/dL (32.0-36.0); Mean Corpuscular Volume 92.1 fl (78.0-98.0); Mean Platelet Volume 9.9 fL (7.4-10.4); Platelet Count 396 10x3/uL (130-400); RBC Distribution Width 14.4 % (11.5-14.5); White Blood Cell (WBC) Count 6.9 10x3/uL (4.8-10.8)
[2022-12-15 17:07] LABS: INR-International Normal Ratio 0.9; Prothrombin Time 12.9 sec (12.0-14.7)
[2022-12-15] MEDS ORDERED: Ondansetron PF 4 MG/2 ML Vial ONE (17:07)
[2022-12-15 17:08] LABS: PTT 33.1 sec (22.9-36.1)
[2022-12-15 17:22] LABS: Acetaminophen 14 mcg/mL (10.0-30.0); Alcohol Less than 10.0 mg/dL (Less than 10); Salicylate Less than 8.0 mg/dL (15.0-30.0)
[2022-12-15 17:48] LABS: Bacteria/HPF 3+ HPF (None Seen); Bilirubin Negative (Negative); Blood, Urine Negative (Negative); CAUTI Indications for Culture Alt mental st,lethar; Clarity Clear (Clear); Glucose, Urine (Dipstick) Normal (Negative); Ketone, Urine Negative (Negative); Leukocyte 250 Leu/uL (Negative); Nitrite Negative (Negative); Protein, Urine (Dipstick) Negative (Neg-Trace); RBC/HPF 0-3 HPF (0-3); Specific Gravity, Urine 1.006 (1.002-1.036); Squamous Epithelial 0-3 HPF (0-3); Urobilinogen Normal mg/dL (Less than 2); WBC/HPF 21-50 HPF (0-3)
[2022-12-15 17:49] LABS: Urine Culture Reflex Yes Yes
[2022-12-15 17:58] LABS: Amphetamine Not Detected (NotDetected); Barbiturates Screen Not Detected (NotDetected); Benzodiazepine Screen Not Detected (NotDetected); Cocaine Metabolite Screen Not Detected (NotDetected); Methadone Not Detected (NotDetected); Methamphetamine Not Detected (NotDetected); Opiate Screen Not Detected (NotDetected); Oxycodone Screen Not Detected (NotDetected); Phencyclidine (PCP) Not Detected (NotDetected); THC/Cannabinoid Screen Not Detected (NotDetected); Tricyclic Screen Not Detected (NotDetected)
[2022-12-15] MEDS ORDERED: cefTRIAXone (ROCEPHIN) 1 GM VIAL ONE (18:11)
[2022-12-15 18:13] LABS: ALT (SGPT) 21 U/L (8-55); AST (SGOT) 25 U/L (5-34); Albumin 4.3 g/dL (3.4-4.8); Alkaline Phosphatase 94 U/L (40-110); Anion Gap 13 mmol/L (10-20); BUN (Urea Nitrogen) 11 mg/dL (9.8-20.1); Bilirubin, Total 0.3 mg/dL (0.2-1.2); CK (CPK) 46 U/L (29-168); Calc. Creatinine Clearance 0 mL/min (70-130); Calcium 9.6 mg/dL (7.8-10.44); Carbon Dioxide 26 mmol/L (23-31); Chloride 94 mmol/L (98-107); Estimated GFR 76; Globulin 3.2 g/dL (2.4-3.5); Glucose 106 mg/dL (83-110); Lipase 40 U/L (8-78); Potassium 3.1 mmol/L (3.5-5.1); Protein, Total 7.5 g/dL (5.8-8.1); Sodium 130 mmol/L (136-145)
== END 2022-12-15 20:14 | disposition home or self-care (01) ==
LOC: ERS 16:00
DX: N39.0 Urinary tract infection, site not specified (principal); R11.0 Nausea; K21.9 Gastro-esophageal reflux disease without esophagitis; E11.9 Type 2 diabetes mellitus without complications; I10 Essential (primary) hypertension; E78.00 Pure hypercholesterolemia, unspecified; Z79.82 Long term (current) use of aspirin
CPT/HCPCS: 36415; 71045; 74177; 80053; 80306; 80307; 81001; 82550; 83690; 83880; 84484; 85025; 85610; 85730; 87040; 87077; 87086; 87186; 87324; 87449; 93005; 96365; 96375; J0696; J2405; Q9967